=== PATIENT | female | born 1975 | race African-American/Black ===

== ENCOUNTER 2017-12-20 22:43 | Emergency (ER) | payer OTHER ==
[2017-12-20 22:45] VITALS: BP 108/56; PULSE 93; RESP 16; TEMP 98.4; O2SAT 99
[2017-12-20] MEDS ORDERED: CLINDAMYCIN 150 MG CAP PO ONE (23:00)
[2017-12-20] MEDS ORDERED: TETANUS/DIPHTHERIA TOXOID ADULT 0.5 ML VIAL IM ONE (23:00)
[2017-12-20] MEDS ORDERED: SULFAMETHOXAZOLE-TRIMETHOPRIM DS 800-160 MG TAB PO ONE (23:00)
[2017-12-20] MEDS ORDERED: CLIN150C14 PO (23:06)
[2017-12-20] MEDS ORDERED: BACT800T5 PO (23:06)
--- NOTE | 2017-12-20 23:07 | PD ---
HPI Chief Complaint: Bite or Sting Time Seen by Provider: 22:54 Travel History International Travel<30 days: No Contact w/Intl Traveler<30days: No Traveled to known affect area: No History of Present Illness HPI 42-year-old female complains of pain and swelling of both legs. Patient states that she got insect bites on her legs last night. Patient states that possible spiders. Patient states that she has increasing pain and swelling on both legs since then. Patient denies any other problem. Patient states that is not up-to -date with TD booster. Patient denies any chance of being . PFSH Past Medical History Diminished Hearing: No Reproductive: Yes ([employer]) Immunizations Current: Yes ?: Not Tubal Ligation: Yes Social History Alcohol Use: Yes Tobacco Use: Yes Substance Use: No Allergies-Medications (Allergen,Severity, Reaction): Coded Allergies: Penicillins (Verified Allergy, Severe, 12/20/17) Review of Systems General / Constitutional: No: Fever Eyes: No: Visual changes HENT: No: Headaches Cardiovascular: No: Chest Pain or Discomfort Respiratory: No: Shortness of Breath Gastrointestinal: No: Abdominal Pain Genitourinary: No: Dysuria Musculoskeletal: No: Pain Skin: No Rash Neurologic: No: Weakness Psychiatric: No: Depression Endocrine: No: Polydipsia Hematologic/Lymphatic: No: Easy Bruising Physical Exam Narrative GENERAL: Well-nourished, well-developed patient. SKIN: Focused skin assessment warm/dry. HEAD: Normocephalic. EYES: No scleral icterus. No injection or drainage. NECK: Supple, trachea midline. No JVD or lymphadenopathy. CARDIOVASCULAR: Regular rate and rhythm without murmurs, gallops, or rubs. RESPIRATORY: Breath sounds equal bilaterally. No accessory muscle use. GASTROINTESTINAL: Abdomen soft, non-tender, nondistended. MUSCULOSKELETAL: No cyanosis, or edema. BACK: Nontender without obvious deformity. No CVA tenderness. Patient has an area increase in heat mild redness tenderness on posterior aspect of left thigh and lateral aspect of the right knee. No induration noted. Mild tenderness on palpation. Data Data Last Documented VS Vital Signs Date Time Temp Pulse Resp B/P (MAP) Pulse Ox O2 Delivery O2 Flow Rate FiO2 12/20/17 22:45 98.4 93 16 108/56 (73) 99 Orders Orders Tetanus/Diphtheria Tox Adult (Tetanus/Di (12/20/17 23:00) Clindamycin (Cleocin) (12/20/17 23:00) Sulfamet-Trimeth Ds 800-160 Mg (Bactrim (12/20/17 23:00) MDM Medical Decision Making Medical Screen Exam Complete: Yes Emergency Medical Condition: Yes Differential Diagnosis Differential diagnosis including cellulitis, abscess. Narrative Course 42-year-old female with pain and swelling and redness of the legs. Patient states that insect bites. Td booster given. Clindamycin 300 mg p.o. given. Bactrim DS 1 tablet p.o. given. Diagnosis Primary Impression: Cellulitis Qualified Codes: L03.119 - Cellulitis of unspecified part of limb Patient Instructions: General Instructions Additional Instructions: Take medications as directed. Moist compress. Follow-up with personal physician. Return if worse. Med/Other Pt SpecificInfo: Prescription(s) given Scripts Clindamycin (Clindamycin) 150 Mg Cap 300 MG PO QID for Infection, #80 CAP 0 Refills Prov: Cornel Hagen MD 12/20/17 Sulfamethoxazole-Trimethoprim (Bactrim DS) 800-160 Mg Tab 1 TAB PO BID for Infection, #20 TAB 0 Refills Prov: Cornel Hagen MD 12/20/17 Disposition: 01 DISCHARGE HOME Condition: Stable Cornel Hagen MD December 20, 2017 23:06
[2017-12-20] MEDS ORDERED: predniSONE 20 MG TAB PO ONE (23:15)
== END 2017-12-20 23:26 | disposition home or self-care (01) ==
LOC: NEPD 22:43
DX: L03.116 Cellulitis of left lower limb (principal); L03.115 Cellulitis of right lower limb; Z23 Encounter for immunization; Z72.0 Tobacco use
CPT/HCPCS: 90471; 90714; 99283; J7512